=== PATIENT | male | born 1955 | race Caucasian/White ===

== ENCOUNTER 2021-05-08 20:11 | Emergency (ER) | payer MEDICARE, BC, SELFPAY ==
[2021-05-08 20:25] VITALS: BP 147/78; PULSE 68; RESP 18; TEMP 36.4; O2SAT 98; BMI 27.8
[2021-05-08] MEDS: PROPARACAINE 0.5% OPHTH SOL 1 DROPS EYE-RIGHT (20:35)
[2021-05-08] MEDS: FLUORESCEIN 1 MG STRIP EYE-RIGHT (20:35)
--- NOTE | 2021-05-08 20:40 | PC.NURSE ---
Pt stated there is a ring around the spot in his eye that is unfocused
[2021-05-08 20:43] VITALS: PULSE 63; RESP 16; O2SAT 96
[2021-05-08 21:00] VITALS: PULSE 65; RESP 16; O2SAT 96
[2021-05-08 21:30] VITALS: PULSE 71; RESP 19; O2SAT 97
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
[2021-05-09] MEDS: OFLOXACIN 0.3% OPHTH 5 ML 1 DROPS EYE-RIGHT (00:39)
[2021-05-09 00:41] VITALS: BP 128/82; PULSE 69; RESP 14; O2SAT 98
== END 2021-05-09 00:43 | disposition home or self-care (01) ==
PROVIDERS: Emergency Provider Emergency Medicine
DX: H53.9 Unspecified visual disturbance (principal); R07.9 Chest pain, unspecified
CPT/HCPCS: 93005; 99283

== ENCOUNTER 2024-01-04 00:35 | Emergency (ER) | payer MEDICARE, BC, SELFPAY ==
[2024-01-04] VITALS (12 sets, daily range): BP systolic 121–185; BP diastolic 71–101; PULSE 58–82; RESP 13–21; O2SAT 94–98; BMI 28.5
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
[2024-01-04] MEDS: ASPIRIN 81 MG CHEW TAB 324 MG PO (01:07)
[2024-01-04 01:08] LABS: Add Manual Diff / Slide Review NO; Basophils Absolute Auto 100 /uL (0-100); Basophils Percent Auto 1.1 % (0-2); Eosinophils Absolute Auto 200 /uL (0-450); Eosinophils Percent Auto 2.1 % (2-4); Hematocrit 42.5 % (41-53); Hemoglobin 14.4 g/dL (13.5-17.5); Lymphocytes Absolute Auto 3000 /uL (1100-4500); Mean Corpuscular HGB Conc 33.9 % (30-36); Mean Corpuscular Volume 94.5 fL (80-100); Monocytes Absolute Auto 1000 /uL (0-900); Monocytes Percent Auto 10.6 % (3-14); Neutrophils Absolute Auto 5100 /uL (1500-7000); Neutrophils Percent Auto 54.2 % (50-75); Platelet Count 265 X10^3/uL (150-400); Red Cell Distribution Width 14.3 % (11.6-14.8); White Blood Cell Count 9.3 X10^3/uL (4.5-11.0)
[2024-01-04 01:10] LABS: Alanine Aminotransferase 23 IU/L (<50); Albumin 4.4 g/dL (3.5-5.0); Albumin Globulin Ratio 1.3 (1.0-2.8); Alkaline Phosphatase 57 U/L (38-126); Aspartate Aminotransferase 34 IU/L (17-59); BUN Creatinine Ratio 20.7 (6-22); Bilirubin Total 0.6 mg/dL (0.2-1.3); Blood Urea Nitrogen 17 mg/dL (9-20); Calcium 8.9 mg/dL (8.4-10.2); Carbon Dioxide 23 mmol/L (22-32); Chloride 104 mmol/L (98-107); Creatine Kinase 91 U/L (55-170); Estimated Glomerular Filt Rate > 60 mL/min (>60); Globulin 3.3 g/dL (1.7-4.1); Glucose 121 mg/dL (80-110); HEMOLYSIS 25 (0-50); Lipase 60 U/L (23-300); Sodium 138 mmol/L (137-145); Total Protein 7.7 g/dL (6.3-8.2)
[2024-01-04 01:22] LABS: Troponin I < 0.012 ng/mL (0.01-0.034)
[2024-01-04 03:29] LABS: Troponin I < 0.012 ng/mL (0.01-0.034)
== END 2024-01-04 03:51 | disposition home or self-care (01) ==
PROVIDERS: Emergency Provider Emergency Medicine
DX: R07.89 Other chest pain (principal)
CPT/HCPCS: 36415; 71045; 80053; 82550; 83690; 84484; 85025; 93005; 99284

== ENCOUNTER 2025-11-28 16:24 | Emergency (ER) | payer MEDICARE, BC, SELFPAY ==
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
[2025-11-28 16:28] VITALS: BP 177/85; PULSE 74; RESP 18; TEMP 36.4; O2SAT 96; BMI 29.8
--- NOTE | 2025-11-28 16:35 | DI.RAD.S_ITS ---
PROCEDURE: XR CHEST 1V INDICATIONS: Chest Pain TECHNIQUE: One view of the chest was acquired. COMPARISON: [facility], CR, XR CHEST 1V, 01/04/2024, 1:00. FINDINGS: Surgical changes and devices: None. Lungs and pleura: Lungs are clear. No pleural effusions or pneumothorax. Mediastinum: Mediastinal contours appear normal. Heart size is normal. Bones and chest wall: No suspicious bony lesions. Overlying soft tissues appear unremarkable. IMPRESSION: No acute cardiopulmonary abnormality is seen. Dictated by: Jose L Joyner M.D. on 11/28/2025 at 16:03 Approved by: Jose L Joyner M.D. on 11/28/2025 at 16:04
--- NOTE | 2025-11-28 16:35 | EKG_ITS ---
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
[2025-11-28] MEDS: ASPIRIN 81 MG CHEW TAB 324 MG PO (16:55)
[2025-11-28 17:03] LABS: Add Manual Diff / Slide Review NO; Hematocrit 43.9 % (41-53); Hemoglobin 14.9 g/dL (13.5-17.5); Lymphocytes Absolute Auto 1500 /uL (1100-4500); Mean Corpuscular HGB Conc 33.9 % (30-36); Mean Corpuscular Hemoglobin 31.7 PG (26-34); Mean Corpuscular Volume 93.5 fL (80-100); Platelet Count 256 X10^3/uL (150-400)
[2025-11-28 17:11] LABS: Alanine Aminotransferase 21 IU/L (<50); Albumin 4.5 g/dL (3.5-5.0); Albumin Globulin Ratio 1.4 (1.0-2.8); Alkaline Phosphatase 65 U/L (38-126); Blood Urea Nitrogen 14 mg/dL (9-20); Calcium 8.9 mg/dL (8.4-10.2); Carbon Dioxide 25 mmol/L (22-32); Chloride 106 mmol/L (98-107); Creatine Kinase 125 U/L (55-170); Estimated Glomerular Filt Rate > 60 mL/min (>60); Globulin 3.2 g/dL (1.7-4.1); Glucose 105 mg/dL (70-99); HEMOLYSIS < 15 (0-50); Lipase 32 U/L (23-300); Magnesium 1.8 mg/dL (1.6-2.3); Potassium 4.0 mmol/L (3.4-5.1); Sodium 139 mmol/L (137-145); Total Protein 7.7 g/dL (6.3-8.2)
[2025-11-28 17:22] LABS: NT-proBNP (BNP-Adult 18+) 80 pg/mL (<125); Troponin I < 0.012 ng/mL (0.01-0.034)
[2025-11-28 17:29] LABS: INR 0.9 (0.9-1.3); Prothrombin Time 10.5 SECONDS (9.4-12.5)
[2025-11-28 17:32] LABS: PTT Partial Thromboplastin Tim 28 SECONDS (25.1-36.5)
[2025-11-28 18:07] VITALS: PULSE 60; O2SAT 97
[2025-11-28 18:09] VITALS: BP 163/77; PULSE 63; RESP 13; O2SAT 98
[2025-11-28 18:30] VITALS: BP 161/81; PULSE 61; RESP 12; O2SAT 97
--- NOTE | 2025-11-28 18:50 | EKG_ITS ---
[facility] [id number] [place] [id number] Test Date: 2025-11-28 Pat Name: 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
[2025-11-28 19:00] VITALS: BP 167/79; PULSE 67; RESP 12; O2SAT 96
[2025-11-28 19:14] VITALS: BP 182/89; PULSE 64; RESP 21; O2SAT 97
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
[2025-11-28 19:42] LABS: Troponin I < 0.012 ng/mL (0.01-0.034)
== END 2025-11-28 19:37 | disposition home or self-care (01) ==
PROVIDERS: Emergency Provider Student in an Organized Health Care Education/Training Program
DX: R07.89 Other chest pain (principal); R06.02 Shortness of breath; I10 Essential (primary) hypertension; Z87.891 Personal history of nicotine dependence
CPT/HCPCS: 36415; 71045; 80053; 82550; 83690; 83735; 83880; 84484; 85025; 85610; 85730; 93005; 99284